=== PATIENT | female | born 1995 | race Caucasian/White ===

== ENCOUNTER 2018-10-22 18:23 | Emergency (ER) | payer MEDICAID ==
[~2018-10-22] VITALS: Ht 165.1 cm; Wt 54.4 kg
--- NOTE | 2018-10-22 18:39 | NUR ---
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 PT REPORTS N/V X 3 MONTHS AND STATES THAT THE C/P STARTED RECENTLY. PT DENIES C/P AT THIS TIME. VSS. PT DENIES SOB, DIZZINESS, HEADACHE. ER MD AT BEDSIDE FOR MSE.
--- NOTE | 2018-10-22 19:03 | NUR ---
SHIFT REPORT GIVEN TO RAVIN PERALTA.
[2018-10-22 19:08] LABS: *BILIRUBIN,URIN NEGATIVE (NEGATIVE); *BLOOD, URINE NEGATIVE (NEGATIVE); *CLARITY,URINE SLIGHTLY CLOUDY (CLEAR); *COLOR,URINE YELLOW (YELLOW); *KETONES,URINE 1+ (NEGATIVE); *UROBILINOGEN,URINE 0.2 E.U./dl (NORMAL); LEUKOCYTE ESTERASE ,URINE NEGATIVE (NEGATIVE); NITRITE, URINE NEGATIVE (NEGATIVE); UGLUCOSE NEGATIVE (NEGATIVE)
[2018-10-22 19:12] LABS: *URINE HCG, QUAL NEGATIVE (NEGATIVE)
[2018-10-22 19:19] LABS: BACTERIA,URINE RARE /HPF (NONE SEEN); RBC,URINE 0-3 /HPF (0-3); SQUAMOUS EPITHELIAL CELL,UR FEW /HPF (NONE SEEN)
--- NOTE | 2018-10-22 19:55 | NUR ---
Patient discharged to home in stable conditon. Written and verbal after care instructions given. Patient verbalizes understanding of instructions.
== END 2018-10-22 19:56 | disposition home or self-care (01) ==
LOC: ER 18:23
DX: K52.9 Noninfective gastroenteritis and colitis, unspecified (principal); Z88.1 Allergy status to other antibiotic agents
CPT/HCPCS: 84703; 93005; A4663

== ENCOUNTER 2019-07-16 19:35 | Emergency (ER) | payer MEDICAID, OTHER ==
[~2019-07-16] VITALS: Ht 165.1 cm; Wt 53.1 kg
[2019-07-16 19:53] LABS: *BILIRUBIN,URIN NEGATIVE (NEGATIVE); *BLOOD, URINE NEGATIVE (NEGATIVE); *CLARITY,URINE CLEAR (CLEAR); *COLOR,URINE YELLOW (YELLOW); *KETONES,URINE NEGATIVE (NEGATIVE); *UROBILINOGEN,URINE 0.2 E.U./dl (NORMAL); LEUKOCYTE ESTERASE ,URINE NEGATIVE (NEGATIVE); NITRITE, URINE NEGATIVE (NEGATIVE); UGLUCOSE NEGATIVE (NEGATIVE)
[2019-07-16 19:54] LABS: *URINE HCG, QUAL NEGATIVE (NEGATIVE)
[2019-07-16] MEDS ORDERED: IBUPROFEN 600 MG TABLET PO ONE (20:00)
[2019-07-16] MEDS ORDERED: IBUPROFEN 600 MG TABLET ONE (20:08)
[2019-07-16 20:12] LABS: BASOPHILS % (AUTO) 0.5 % (0.0-2.0); EOSINOPHILS # (AUTO) 0.1 K/uL (0.0-0.7); EOSINOPHILS % (AUTO) 1.2 % (0.0-7.0); HEMATOCRIT 40.2 % (31.2-41.9); HEMOGLOBIN 13.5 g/dL (10.9-14.3); LYMPHOCYTES # (AUTO) 3.5 K/uL (20.0-40.0); LYMPHOCYTES % (AUTO) 35.7 % (20.5-51.5); MEAN CORPUSCULAR HEMOGLOBIN 32.9 uug (24.7-32.8); MEAN CORPUSCULAR HGB CONC 34 g/dL (32.3-35.6); MEAN CORPUSCULAR VOLUME 98.3 fL (75.5-95.3); MONOCYTES # (AUTO) 0.8 K/uL (2.0-10.0); MONOCYTES % (AUTO) 8.5 % (0.0-11.0); NEUTROPHILS # (AUTO) 5.3 K/uL (1.8-8.9); NEUTROPHILS % (AUTO) 54.1 % (38.5-71.5); PLATELET COUNT (AUTO) 261 K/uL (179-408); RED BLOOD CELL COUNT(AUTO) 4.09 MIL/uL (3.63-4.92); WHITE BLOOD COUNT (AUTO) 9.9 K/uL (3.8-11.8)
--- NOTE | 2019-07-16 20:14 | NUR ---
US at bedside for scan
[2019-07-16 20:20] LABS: CREATININE 0.6 mg/dL (0.6-1.3); POTASSIUM 3.7 mmol/L (3.5-5.1)
[2019-07-16 20:26] LABS: BILIRUBIN,DIRECT 0.1 mg/dL (0.0-0.2); BILIRUBIN,TOTAL 0.3 mg/dL (0.2-1.0); TOTAL PROTEIN, SERUM 7.6 g/dL (6.4-8.2)
--- NOTE | 2019-07-16 20:59 | NUR ---
Female filtration plant operator, CLARENCE Mccrary, accompanied female patient for Pelvic exam with Dr. Peralta.
--- NOTE | 2019-07-16 21:30 | NUR ---
Patient discharged to home in stable conditon. Written and verbal after care instructions given. Patient verbalizes understanding of instructions. Patient ambulated with stable gait.
[2019-07-16 21:44] VITALS: BP 125/70
[2019-07-19 02:09] LABS: NEISSERIA GONORRHOEAE NAA Negative (Negative)
== END 2019-07-16 21:45 | disposition home or self-care (01) ==
LOC: ER 19:35
DX: R10.30 Lower abdominal pain, unspecified (principal); R10.2 Pelvic and perineal pain; R09.81 Nasal congestion; Z88.1 Allergy status to other antibiotic agents
CPT/HCPCS: 36415; 76856; 84703; 85025; 87210; 87491; 87591; A4663

== ENCOUNTER 2020-10-18 19:02 | Emergency (ER) | payer MEDICAID, OTHER ==
[~2020-10-18] VITALS: Ht 165.1 cm; Wt 56.7 kg
--- NOTE | 2020-10-18 19:05 | NUR ---
Patient brought in room
[2020-10-18] MEDS ORDERED: ASPIRIN 325 MG TABLET PO ONE (20:00)
[2020-10-18] MEDS ORDERED: ASPIRIN 325 MG TABLET ONE (21:00)
[2020-10-18 21:03] LABS: BASOPHILS % (AUTO) 0.5 % (0.0-2.0); EOSINOPHILS # (AUTO) 0.2 K/uL (0.0-0.7); EOSINOPHILS % (AUTO) 3.3 % (0.0-7.0); HEMATOCRIT 42.6 % (31.2-41.9); HEMOGLOBIN 14.2 g/dL (10.9-14.3); LYMPHOCYTES # (AUTO) 2.4 K/uL (20.0-40.0); LYMPHOCYTES % (AUTO) 37.5 % (20.5-51.5); MEAN CORPUSCULAR HEMOGLOBIN 32.1 uug (24.7-32.8); MEAN CORPUSCULAR HGB CONC 33 g/dL (32.3-35.6); MEAN CORPUSCULAR VOLUME 96.1 fL (75.5-95.3); MONOCYTES # (AUTO) 0.9 K/uL (2.0-10.0); MONOCYTES % (AUTO) 13.4 % (0.0-11.0); NEUTROPHILS # (AUTO) 2.9 K/uL (1.8-8.9); NEUTROPHILS % (AUTO) 45.3 % (38.5-71.5); PLATELET COUNT (AUTO) 315 K/uL (179-408); RED BLOOD CELL COUNT(AUTO) 4.43 MIL/uL (3.63-4.92); WHITE BLOOD COUNT (AUTO) 6.5 K/uL (3.8-11.8)
[2020-10-18 21:12] LABS: CREATININE 0.8 mg/dL (0.6-1.3); POTASSIUM 3.7 mmol/L (3.5-5.1)
[2020-10-18 21:17] LABS: BILIRUBIN,DIRECT 0.1 mg/dL (0.0-0.2); BILIRUBIN,TOTAL 0.3 mg/dL (0.2-1.0); TOTAL PROTEIN, SERUM 8.6 g/dL (6.4-8.2)
[2020-10-18 21:31] LABS: *URINE HCG, QUAL NEGATIVE (NEGATIVE)
[2020-10-19] MEDS ORDERED: IBUPROFEN 600 MG TABLET PO ONE
[2020-10-19] MEDS ORDERED: IBUPROFEN 600 MG TABLET ONE (00:20)
--- NOTE | 2020-10-19 00:20 | NUR ---
Patient discharged at this time. Stable condition. VSS. No pain. Picked up in private vehicle.
[2020-10-19 00:31] VITALS: BP 127/78
== END 2020-10-19 00:20 | disposition home or self-care (01) ==
LOC: ER 19:02
DX: R07.9 Chest pain, unspecified (principal); Z20.822 Contact with and (suspected) exposure to COVID-19; I49.1 Atrial premature depolarization; Z87.19 Personal history of other diseases of the digestive system; Z86.14 Personal history of Methicillin resistant Staphylococcus aureus infection; Z88.1 Allergy status to other antibiotic agents; F17.210 Nicotine dependence, cigarettes, uncomplicated
CPT/HCPCS: 36415; 70030-TC; 71045; 84703; 85025; 93005; A4663

== ENCOUNTER 2021-06-04 12:15 | Emergency (ER) | payer MEDICAID ==
[~2021-06-04] VITALS: Ht 165.1 cm; Wt 59.0 kg
--- NOTE | 2021-06-04 12:32 | NUR ---
[email or web address], medical screening exam in progress
[2021-06-04] MEDS ORDERED: PANTOPRAZOLE SODIUM 40 MG TABLET.DR PO ONE ×2 (12:41→12:45)
--- NOTE | 2021-06-04 12:45 | NUR ---
Patient discharged to home in stable condition with brisk steady gait. Written and verbal after care instructions given to patient. Patient verbalized understanding and compliance of instructions. Stressed follow up with her primary doctor and varnish melter (GI specialist) or return to ER for worsening s/s.
== END 2021-06-04 12:46 | disposition home or self-care (01) ==
LOC: ER 12:15
DX: K21.9 Gastro-esophageal reflux disease without esophagitis (principal); Z86.14 Personal history of Methicillin resistant Staphylococcus aureus infection
CPT/HCPCS: A4663

== ENCOUNTER 2021-10-08 15:48 | Emergency (ER) | payer MEDICAID ==
[~2021-10-08] VITALS: Ht 165.1 cm; Wt 56.7 kg
--- NOTE | 2021-10-08 16:38 | NUR ---
PT WAS EVALUATED BY DR SPRAGUE. PT WAS D/C'd TO HOME. D/C INSTRUCTIONS GIVEN TO THE PT BY DR SPRAGUE.
[2021-10-08 16:44] VITALS: BP 129/68
[2021-10-08] MEDS ORDERED: ACETAMINOPHEN 325 MG TABLET PO ONE (16:45)
== END 2021-10-08 16:55 | disposition home or self-care (01) ==
LOC: ER 16:16
DX: M79.605 Pain in left leg (principal); M79.604 Pain in right leg; F17.200 Nicotine dependence, unspecified, uncomplicated; Z86.14 Personal history of Methicillin resistant Staphylococcus aureus infection; Z87.19 Personal history of other diseases of the digestive system; Z88.1 Allergy status to other antibiotic agents
CPT/HCPCS: A4663